=== PATIENT | male | born 2000 | race African-American/Black ===

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

== ENCOUNTER 2022-07-12 14:18 | Emergency (ER) | payer OTHER ==
[2022-07-12] MEDS ORDERED: Ibuprofen 800 MG TAB ONE (15:06)
== END 2022-07-12 15:15 | disposition home or self-care (01) ==
LOC: BURERS 14:18
DX: S70.01XA Contusion of right hip, initial encounter (principal); V49.40XA Driver injured in collision with unspecified motor vehicles in traffic accident, initial encounter; Y92.410 Unspecified street and highway as the place of occurrence of the external cause

== ENCOUNTER 2022-11-12 22:48 | Emergency (ER) | payer OTHER | END 2022-11-12 23:17 | disposition home or self-care (01) | LOC: BURERS 22:48 | DX: A08.4 Viral intestinal infection, unspecified (principal) | CPT/HCPCS: 99283 ==

== ENCOUNTER 2023-03-05 11:04 | Emergency (ER) | payer OTHER ==
[2023-03-05] MEDS ORDERED: Bicillin LA 1.2 MILLION UNITS/2 ML SYRINGE ONE (11:35)
== END 2023-03-05 11:41 | disposition home or self-care (01) ==
LOC: BURERS 11:04
DX: J02.9 Acute pharyngitis, unspecified (principal)
CPT/HCPCS: 87081; 87430; 96372; 99283; J0561

== ENCOUNTER 2025-04-12 10:57 | Emergency (ER) | payer OTHER, SELFPAY | END 2025-04-12 12:24 | disposition home or self-care (01) | LOC: BURERS 10:57 | DX: K08.89 Other specified disorders of teeth and supporting structures (principal); K04.7 Periapical abscess without sinus | CPT/HCPCS: 99282 ==